=== PATIENT | male | born 1985 | race Caucasian/White ===

== ENCOUNTER 2016-10-23 14:00 | Emergency (ER) | payer OTHER ==
[~2016-10-23] VITALS: Ht 175.3 cm; Wt 81.8 kg
[2016-10-23] MEDS ORDERED: NARCAN4 MG NS (15:40)
[2016-10-23 16:18] VITALS: BP 114/79
== END 2016-10-23 16:18 | disposition home or self-care (01) ==
LOC: EME 14:00
DX: T40.1X1A Poisoning by heroin, accidental (unintentional), initial encounter (principal)
CPT/HCPCS: 99281; 99284